=== PATIENT | male | born 1975 | race Caucasian/White ===

== ENCOUNTER 2021-09-04 04:45 | Inpatient (IN) | payer MEDICARE, OTHER ==
[2021-09-04] MEDS ORDERED: Acetaminophen 325 MG TAB PO PRN (15:43)
[2021-09-04] MEDS ORDERED: Calcium Carbonate 500 MG ChewTAB PO PRN (15:43)
[2021-09-04] MEDS ORDERED: NS 0.9% w/ 20 MEQ KCL 1,000 ML/1,000 ML BAG IV SCH (15:43)
[2021-09-04] MEDS ORDERED: Ondansetron PF 4 MG/2 ML Vial IVP PRN (15:43)
[2021-09-04] MEDS ORDERED: Ondansetron ODT 4 MG TAB PO PRN (15:43)
[2021-09-04 17:15] VITALS: BMI 21.2
[2021-09-04] MEDS ORDERED: Vancomycin 1 GM in Premix Bag 1 BAG IVPB SCH (17:15)
[2021-09-04] MEDS: metroNIDAZOLE 500 MG in Premix Bag 1 BAG IVPB SCH (19:21)
[2021-09-04] MEDS: Morphine 4 MG/ML VIAL SLOW IVP PRN ×2 (19:52→23:38)
[2021-09-04] MEDS: Multivit, Therapeutic 1 TAB PO SCH (19:56)
[2021-09-04] MEDS: Famotidine 20 MG TAB PO SCH (19:56)
[2021-09-04] MEDS: Folic Acid 1 MG TAB PO SCH (19:56)
[2021-09-04] MEDS: Thiamine 100 MG TAB PO SCH (19:56)
[2021-09-04] MEDS: Senokot S 8.6-50 MG TAB PO SCH (19:57)
[2021-09-04] MEDS: Cefepime 2 GM in Sodium Chloride 0.9% 100 ML IVPB SCH (20:41)
[2021-09-04] MEDS: Nicotine 14 MG PATCH TOP SCH (21:46)
[2021-09-04] MEDS: Vancomycin 1 GM in Premix Bag 1 BAG IVPB SCH (21:46)
[2021-09-05] MEDS: metroNIDAZOLE 500 MG in Premix Bag 1 BAG IVPB SCH ×3 (03:32→18:08)
[2021-09-05] MEDS: Morphine 4 MG/ML VIAL SLOW IVP PRN ×2 (03:37→07:58)
[2021-09-05] MEDS: Cefepime 2 GM in Sodium Chloride 0.9% 100 ML IVPB SCH ×3 (04:05→20:32)
[2021-09-05 04:47] LABS: #Basophils 0.1 thou/uL (0.0-0.2); #Eosinphils 0.3 thou/uL (0.0-0.7); #Lymphocytes 3.3 thou/uL (1.20-3.40); #Neutrophils 4.9 thou/uL (1.40-6.50); %Eosinophils 2.9 % (0.0-10.0); %Lymphocytes 34.3 % (21.0-51.0); %Monocytes 10.6 % (0.0-10.0); %Neutrophils 51.2 % (42.0-75.0); Hemoglobin 13.4 g/dL (14.0-18.0); Mean Corpuscular HGB CONC 32.7 g/dL (32.0-36.0); Mean Corpuscular Hemoglobin 31.6 pg (27.0-31.0); Mean Corpuscular Volume 96.7 fL (78.0-98.0); Mean Platelet Volume 7.7 fL (7.4-10.4); Platelet Count 325 thou/uL (130-400); RBC Distribution Width 12.9 % (11.5-14.5); Red Blood Cell (RBC) Count 4.25 mill/uL (4.70-6.10); White Blood Cell (WBC) Count 9.5 thou/uL (4.8-10.8)
[2021-09-05 05:21] LABS: ALT (SGPT) 9 U/L (8-55); AST (SGOT) 12 U/L (5-34); Alkaline Phosphatase 81 U/L (40-110); Anion Gap 11 mmol/L (10-20); BUN (Urea Nitrogen) 9 mg/dL (8.9-20.6); Bilirubin, Total 0.3 mg/dL (0.2-1.2); Calc. Creatinine Clearance 131 mL/min (70-130); Calcium 8.2 mg/dL (7.8-10.44); Carbon Dioxide 23 mmol/L (22-29); Chloride 107 mmol/L (98-107); Glucose 96 mg/dL (70-105); Potassium 3.7 mmol/L (3.5-5.1); Sodium 137 mmol/L (136-145)
[2021-09-05] MEDS: Vancomycin 1 GM in Premix Bag 1 BAG IVPB SCH ×3 (05:53→21:57)
[2021-09-05] MEDS ORDERED: Potassium Chloride 20 MEQ TAB PO SCH (06:00)
[2021-09-05] MEDS ORDERED: GUAIFENESIN SF SOLN 200 MG/10 ML UDCUP PO PRN (07:37)
[2021-09-05] MEDS ORDERED: Cepastat Lozenges 1 LOZ PO PRN (07:37)
[2021-09-05] MEDS ORDERED: hydrALAZINE 20 MG/ML VIAL SLOW IVP PRN (07:37)
[2021-09-05] MEDS ORDERED: Loratadine 10 MG TAB PO PRN (07:37)
[2021-09-05] MEDS ORDERED: Loperamide HCl 2 MG CAP PO PRN (07:37)
[2021-09-05] MEDS: Famotidine 20 MG TAB PO SCH ×2 (08:43→20:32)
[2021-09-05] MEDS: Senokot S 8.6-50 MG TAB PO SCH ×2 (08:43→20:33)
[2021-09-05] MEDS ORDERED: fentaNYL Citrate/PF 100 MCG/2 ML SYRINGE ONE (12:23)
[2021-09-05] MEDS ORDERED: Midazolam HCl 2 mg/2 ml Vial ONE (12:24)
[2021-09-05] MEDS ORDERED: Fentanyl 100 MCG/2 ML VIAL ONE ×3 (12:24→14:15)
[2021-09-05] MEDS ORDERED: Ropivacaine 0.5% HCl/PF (150 MG/30 ML VIAL) ONE (12:24)
[2021-09-05] MEDS ORDERED: Vancomycin 1 GM/200 ML BAG ONE (12:31)
[2021-09-05] MEDS ORDERED: Lidocaine 1% PF 5 ML VIAL ONE (12:39)
[2021-09-05] MEDS ORDERED: PROPOFOL 200 MG/20 ML VIAL ONE (12:39)
[2021-09-05] MEDS ORDERED: Dexamethasone 20 MG/5 ML VIAL ONE (12:39)
[2021-09-05] MEDS ORDERED: Ondansetron PF 4 MG/2 ML Vial ONE (12:39)
[2021-09-05] MEDS ORDERED: Meperidine HCl/PF 25 MG/ML VIAL ONE (13:42)
[2021-09-05] MEDS ORDERED: HYDROmorphone 2 MG/ML VIAL SLOW IVP PRN (13:42)
[2021-09-05] MEDS ORDERED: Ondansetron HCl/PF 4 MG/2 ML Vial IVP PRN (13:42)
[2021-09-05] MEDS ORDERED: Meperidine HCl/PF 25 MG/ML VIAL SLOW IVP PRN (13:42)
[2021-09-05] MEDS ORDERED: Promethazine HCl 25 MG/ML VIAL IVPB PRN (13:42)
[2021-09-05] MEDS ORDERED: Promethazine HCl 25 MG/ML VIAL IM PRN (13:42)
[2021-09-05] MEDS ORDERED: HYDROmorphone 0.5 MG/0.5 ML SYRINGE ONE ×2 (13:48→14:15)
[2021-09-05] MEDS: HYDROcodone/Acetaminophen 5/325 mg Tablet PO PRN (20:32)
[2021-09-05] MEDS: Multivit, Therapeutic 1 TAB PO SCH (20:32)
[2021-09-05] MEDS: Thiamine 100 MG TAB PO SCH (20:32)
[2021-09-05] MEDS: Folic Acid 1 MG TAB PO SCH (20:32)
[2021-09-05] MEDS: Nicotine 14 MG PATCH TOP SCH (21:57)
[2021-09-06] MEDS: HYDROcodone/Acetaminophen 5/325 mg Tablet PO PRN ×5 (01:04→23:20)
[2021-09-06] MEDS: metroNIDAZOLE 500 MG in Premix Bag 1 BAG IVPB SCH ×2 (01:51→09:27)
[2021-09-06] MEDS: Cefepime 2 GM in Sodium Chloride 0.9% 100 ML IVPB SCH ×3 (04:32→20:52)
[2021-09-06] MEDS: Vancomycin 1 GM in Premix Bag 1 BAG IVPB SCH ×3 (05:13→21:41)
[2021-09-06 05:49] LABS: #Lymphocytes 2.4 thou/uL (1.20-3.40); #Neutrophils 9.6 thou/uL (1.40-6.50); %Basophils 0.1 % (0.0-1.0); %Eosinophils 0.4 % (0.0-10.0); %Lymphocytes 18.1 % (21.0-51.0); %Monocytes 7.9 % (0.0-10.0); %Neutrophils 73.5 % (42.0-75.0); Hemoglobin 13.4 g/dL (14.0-18.0); Mean Corpuscular HGB CONC 33.6 g/dL (32.0-36.0); Mean Corpuscular Hemoglobin 31.9 pg (27.0-31.0); Mean Corpuscular Volume 94.8 fL (78.0-98.0); Mean Platelet Volume 7.7 fL (7.4-10.4); Platelet Count 361 thou/uL (130-400); RBC Distribution Width 12.8 % (11.5-14.5); Red Blood Cell (RBC) Count 4.21 mill/uL (4.70-6.10)
[2021-09-06 06:19] LABS: Anion Gap 11 mmol/L (10-20); BUN (Urea Nitrogen) 12 mg/dL (8.9-20.6); CRP (Inflammatory) 1.44 mg/dL (= or < 0.5); Calc. Creatinine Clearance 131 mL/min (70-130); Calcium 8.3 mg/dL (7.8-10.44); Carbon Dioxide 28 mmol/L (22-29); Chloride 106 mmol/L (98-107); Glucose 111 mg/dL (70-105); Sodium 141 mmol/L (136-145)
[2021-09-06] MEDS: Senokot S 8.6-50 MG TAB PO SCH ×2 (09:28→20:52)
[2021-09-06] MEDS: Famotidine 20 MG TAB PO SCH ×2 (09:28→20:52)
[2021-09-06] MEDS: Enoxaparin Sodium 40 MG/0.4 ML SYRINGE SC SCH (09:29)
[2021-09-06] MEDS: Morphine 4 MG/ML VIAL SLOW IVP PRN (11:40)
[2021-09-06] MEDS ORDERED: Morphine 4 MG/ML VIAL SLOW IVP SCH (11:54)
[2021-09-06] MEDS ORDERED: Lidocaine 4% Topical Sol 50 ML BOT TOP SCH (12:15)
[2021-09-06] MEDS: metroNIDAZOLE 500 MG TAB PO SCH (18:16)
[2021-09-06 20:16] LABS: Vancomycin, Trough 18.4 ug/mL
[2021-09-06] MEDS: Thiamine 100 MG TAB PO SCH (20:52)
[2021-09-06] MEDS: Multivit, Therapeutic 1 TAB PO SCH (20:52)
[2021-09-06] MEDS: Nicotine 14 MG PATCH TOP SCH (20:53)
[2021-09-06] MEDS: Folic Acid 1 MG TAB PO SCH (20:53)
[2021-09-07] MEDS: Morphine 4 MG/ML VIAL SLOW IVP PRN (02:19)
[2021-09-07] MEDS: metroNIDAZOLE 500 MG TAB PO SCH ×3 (02:21→18:19)
[2021-09-07] MEDS: HYDROcodone/Acetaminophen 5/325 mg Tablet PO PRN ×5 (03:34→22:19)
[2021-09-07] MEDS: Cefepime 2 GM in Sodium Chloride 0.9% 100 ML IVPB SCH ×3 (03:35→20:46)
[2021-09-07] MEDS: Vancomycin 1 GM in Premix Bag 1 BAG IVPB SCH ×3 (03:40→22:19)
[2021-09-07] MEDS: Senokot S 8.6-50 MG TAB PO SCH ×2 (09:11→20:46)
[2021-09-07] MEDS: Famotidine 20 MG TAB PO SCH ×2 (09:11→20:46)
[2021-09-07] MEDS: Enoxaparin Sodium 40 MG/0.4 ML SYRINGE SC SCH (09:12)
[2021-09-07] MEDS: Multivit, Therapeutic 1 TAB PO SCH (20:46)
[2021-09-07] MEDS: Folic Acid 1 MG TAB PO SCH (20:46)
[2021-09-07] MEDS: Thiamine 100 MG TAB PO SCH (20:46)
[2021-09-07] MEDS: Nicotine 14 MG PATCH TOP SCH (22:25)
[2021-09-08] MEDS: metroNIDAZOLE 500 MG TAB PO SCH ×3 (01:32→17:51)
[2021-09-08] MEDS: HYDROcodone/Acetaminophen 5/325 mg Tablet PO PRN ×5 (01:32→22:19)
[2021-09-08] MEDS: Cefepime 2 GM in Sodium Chloride 0.9% 100 ML IVPB SCH ×3 (05:03→20:43)
[2021-09-08] MEDS: Vancomycin 1 GM in Premix Bag 1 BAG IVPB SCH ×3 (07:21→22:19)
[2021-09-08] MEDS: Senokot S 8.6-50 MG TAB PO SCH ×2 (09:08→20:44)
[2021-09-08] MEDS: Famotidine 20 MG TAB PO SCH ×2 (09:08→20:44)
[2021-09-08] MEDS: Enoxaparin Sodium 40 MG/0.4 ML SYRINGE SC SCH (09:08)
[2021-09-08] MEDS: Morphine 2 MG/ML VIAL SLOW IVP PRN (14:01)
[2021-09-08] MEDS: Multivit, Therapeutic 1 TAB PO SCH (20:43)
[2021-09-08] MEDS: Thiamine 100 MG TAB PO SCH (20:44)
[2021-09-08] MEDS: Folic Acid 1 MG TAB PO SCH (20:44)
[2021-09-08] MEDS: Nicotine 14 MG PATCH TOP SCH (23:22)
[2021-09-09] MEDS: metroNIDAZOLE 500 MG TAB PO SCH ×3 (02:26→18:05)
[2021-09-09] MEDS: HYDROcodone/Acetaminophen 5/325 mg Tablet PO PRN ×4 (02:26→18:05)
[2021-09-09] MEDS: Cefepime 2 GM in Sodium Chloride 0.9% 100 ML IVPB SCH ×3 (02:28→21:55)
[2021-09-09] MEDS: Vancomycin 1 GM in Premix Bag 1 BAG IVPB SCH ×3 (03:45→22:30)
[2021-09-09 05:59] LABS: Calc. Creatinine Clearance 133 mL/min (70-130)
[2021-09-09 08:06] LABS: #Basophils 0.1 thou/uL (0.0-0.2); #Eosinphils 0.2 thou/uL (0.0-0.7); #Neutrophils 3.8 thou/uL (1.40-6.50); %Basophils 0.9 % (0.0-1.0); %Eosinophils 2.7 % (0.0-10.0); %Monocytes 12.1 % (0.0-10.0); %Neutrophils 47.4 % (42.0-75.0); Hemoglobin 14.8 g/dL (14.0-18.0); Mean Corpuscular HGB CONC 32.4 g/dL (32.0-36.0); Mean Corpuscular Hemoglobin 31.3 pg (27.0-31.0); Mean Corpuscular Volume 96.7 fL (78.0-98.0); Mean Platelet Volume 7.9 fL (7.4-10.4); Platelet Count 341 thou/uL (130-400); RBC Distribution Width 13.2 % (11.5-14.5); Red Blood Cell (RBC) Count 4.73 mill/uL (4.70-6.10); White Blood Cell (WBC) Count 8.1 thou/uL (4.8-10.8)
[2021-09-09] MEDS: Famotidine 20 MG TAB PO SCH ×2 (08:33→21:56)
[2021-09-09] MEDS: Senokot S 8.6-50 MG TAB PO SCH ×2 (08:33→21:56)
[2021-09-09] MEDS: Enoxaparin Sodium 40 MG/0.4 ML SYRINGE SC SCH ×2 (08:33→08:35)
[2021-09-09 09:12] LABS: Anion Gap 8 mmol/L (10-20); BUN (Urea Nitrogen) 8 mg/dL (8.9-20.6); Calc. Creatinine Clearance 131 mL/min (70-130); Carbon Dioxide 34 mmol/L (22-29); Chloride 102 mmol/L (98-107); Glucose 98 mg/dL (70-105); Potassium 3.9 mmol/L (3.5-5.1); Sodium 140 mmol/L (136-145)
[2021-09-09] MEDS: Thiamine 100 MG TAB PO SCH (21:56)
[2021-09-09] MEDS: Folic Acid 1 MG TAB PO SCH (21:56)
[2021-09-09] MEDS: Multivit, Therapeutic 1 TAB PO SCH (21:57)
[2021-09-09] MEDS: Morphine 2 MG/ML VIAL SLOW IVP PRN (22:08)
[2021-09-09] MEDS: Nicotine 14 MG PATCH TOP SCH (22:30)
[2021-09-10] MEDS: metroNIDAZOLE 500 MG TAB PO SCH ×3 (03:00→17:46)
[2021-09-10] MEDS: Cefepime 2 GM in Sodium Chloride 0.9% 100 ML IVPB SCH ×3 (03:00→21:21)
[2021-09-10 04:57] LABS: Vancomycin, Trough 20.1 ug/mL
[2021-09-10] MEDS: Vancomycin 1 GM in Premix Bag 1 BAG IVPB SCH ×3 (06:00→22:06)
[2021-09-10] MEDS: HYDROcodone/Acetaminophen 5/325 mg Tablet PO PRN ×4 (06:45→21:27)
[2021-09-10] MEDS: Senokot S 8.6-50 MG TAB PO SCH ×2 (09:14→21:23)
[2021-09-10] MEDS: Famotidine 20 MG TAB PO SCH ×2 (09:15→21:22)
[2021-09-10] MEDS: Enoxaparin Sodium 40 MG/0.4 ML SYRINGE SC SCH (09:15)
[2021-09-10 20:36] LABS: Vancomycin, Trough 17.9 ug/mL
[2021-09-10] MEDS: Folic Acid 1 MG TAB PO SCH (21:22)
[2021-09-10] MEDS: Multivit, Therapeutic 1 TAB PO SCH (21:22)
[2021-09-10] MEDS: Nicotine 14 MG PATCH TOP SCH (21:23)
[2021-09-11] MEDS: HYDROcodone/Acetaminophen 5/325 mg Tablet PO PRN ×4 (02:36→19:26)
[2021-09-11] MEDS: metroNIDAZOLE 500 MG TAB PO SCH ×3 (02:37→19:24)
[2021-09-11] MEDS: Cefepime 2 GM in Sodium Chloride 0.9% 100 ML IVPB SCH ×3 (04:38→21:00)
[2021-09-11] MEDS: Vancomycin 1 GM in Premix Bag 1 BAG IVPB SCH ×4 (06:11→23:58)
[2021-09-11 07:26] LABS: Calc. Creatinine Clearance 128 mL/min (70-130)
[2021-09-11] MEDS: Senokot S 8.6-50 MG TAB PO SCH ×2 (09:31→22:23)
[2021-09-11] MEDS: Enoxaparin Sodium 40 MG/0.4 ML SYRINGE SC SCH ×2 (09:31→09:34)
[2021-09-11] MEDS: Saccharomyces boulardii 250 MG CAP PO SCH (09:31)
[2021-09-11] MEDS: Morphine 2 MG/ML VIAL SLOW IVP PRN (10:24)
[2021-09-11] MEDS: Famotidine 20 MG TAB PO SCH ×2 (10:27→22:23)
[2021-09-11] MEDS ORDERED: Lidocaine 4% Topical Sol 50 ML BOT TOP PRN (10:45)
[2021-09-11 20:59] LABS: Vancomycin, Trough 27.4 ug/mL
[2021-09-11] MEDS: Thiamine 100 MG TAB PO SCH (22:22)
[2021-09-11] MEDS: Multivit, Therapeutic 1 TAB PO SCH (22:23)
[2021-09-11] MEDS: Nicotine 14 MG PATCH TOP SCH (22:23)
[2021-09-11] MEDS: Folic Acid 1 MG TAB PO SCH (22:23)
[2021-09-12] MEDS: HYDROcodone/Acetaminophen 5/325 mg Tablet PO PRN ×4 (00:53→19:16)
[2021-09-12] MEDS: metroNIDAZOLE 500 MG TAB PO SCH ×3 (03:19→18:35)
[2021-09-12] MEDS: Cefepime 2 GM in Sodium Chloride 0.9% 100 ML IVPB SCH ×3 (05:01→21:09)
[2021-09-12] MEDS: Morphine 2 MG/ML VIAL SLOW IVP PRN (05:12)
[2021-09-12 06:04] LABS: Calc. Creatinine Clearance 130 mL/min (70-130)
[2021-09-12] MEDS: Vancomycin 1 GM in Premix Bag 1 BAG IVPB SCH ×3 (06:14→21:29)
[2021-09-12] MEDS: Famotidine 20 MG TAB PO SCH ×2 (08:56→21:33)
[2021-09-12] MEDS: Senokot S 8.6-50 MG TAB PO SCH ×2 (08:56→21:29)
[2021-09-12] MEDS: Enoxaparin Sodium 40 MG/0.4 ML SYRINGE SC SCH (08:57)
[2021-09-12] MEDS: Saccharomyces boulardii 250 MG CAP PO SCH (08:57)
[2021-09-12] MEDS: Nicotine 14 MG PATCH TOP SCH (21:29)
[2021-09-12] MEDS: Folic Acid 1 MG TAB PO SCH (21:33)
[2021-09-12] MEDS: Thiamine 100 MG TAB PO SCH (21:33)
[2021-09-12] MEDS: Multivit, Therapeutic 1 TAB PO SCH (21:33)
[2021-09-13] MEDS: metroNIDAZOLE 500 MG TAB PO SCH ×4 (01:02→18:39)
[2021-09-13] MEDS: Cefepime 2 GM in Sodium Chloride 0.9% 100 ML IVPB SCH ×2 (03:11→12:12)
[2021-09-13] MEDS: Vancomycin 1 GM in Premix Bag 1 BAG IVPB SCH ×2 (05:39→13:27)
[2021-09-13 07:07] LABS: Calc. Creatinine Clearance 131 mL/min (70-130)
[2021-09-13] MEDS: Enoxaparin Sodium 40 MG/0.4 ML SYRINGE SC SCH (09:26)
[2021-09-13] MEDS: HYDROcodone/Acetaminophen 5/325 mg Tablet PO PRN ×4 (09:26→19:36)
[2021-09-13] MEDS: Senokot S 8.6-50 MG TAB PO SCH (09:27)
[2021-09-13] MEDS: Saccharomyces boulardii 250 MG CAP PO SCH (09:28)
[2021-09-13] MEDS: Famotidine 20 MG TAB PO SCH (15:20)
[2021-09-13 16:01] VITALS: BP 139/77; TEMP 97.7
== END 2021-09-13 19:38 | disposition home or self-care (01) | DRG 493 ==
LOC: 2NO 13:17 → SURG A 09-05 12:53
PROVIDERS: ADMIT Internal Medicine; ATTEND Internal Medicine
PROC: 0QBK0ZZ Excision of Left Fibula, Open Approach (ICD-10-PCS; principal; 2021-09-05)
PROC: 0QPJ04Z Removal of Internal Fixation Device from Right Fibula, Open Approach (ICD-10-PCS; 2021-09-05)
DX: T84.624A Infection and inflammatory reaction due to internal fixation device of right fibula, initial encounter (principal); T81.30XA Disruption of wound, unspecified, initial encounter; L03.115 Cellulitis of right lower limb; I96 Gangrene, not elsewhere classified; T84.196A Other mechanical complication of internal fixation device of bone of right lower leg, initial encounter; Z20.822 Contact with and (suspected) exposure to COVID-19; F90.9 Attention-deficit hyperactivity disorder, unspecified type; F17.210 Nicotine dependence, cigarettes, uncomplicated; E87.6 Hypokalemia; Y83.8 Other surgical procedures as the cause of abnormal reaction of the patient, or of later complication, without mention of misadventure at the time of the procedure; B95.62 Methicillin resistant Staphylococcus aureus infection as the cause of diseases classified elsewhere; I10 Essential (primary) hypertension
CPT/HCPCS: 36415; 76000; 80048; 80053; 80202; 82565; 85025; 86140; 87070; 87077; 87186; 87205; J0692; J1100; J1170; J1650; J2175; J2250; J2270; J2405; J2704; J2795; J3010; J3370; J3480; J3490; U0003; U0005